=== PATIENT | female | born 1950 | race Caucasian/White ===

== ENCOUNTER → 2023-09-19 14:19 | Outpatient (REF) | payer BC, SELFPAY | LOC: HWWDC 14:19 | PROVIDERS: ATTENDING PHYSICIAN Family Medicine | DX: Z12.31 Encounter for screening mammogram for malignant neoplasm of breast (principal) | CPT/HCPCS: 77063; 77067 ==

== ENCOUNTER → 2023-09-27 06:38 | Day surgery (SDC) | payer BC, SELFPAY | LOC: GI 06:38 | PROVIDERS: ATTENDING PHYSICIAN Internal Medicine; FAMILY PHYSICIAN Family Medicine | DX: Z12.11 Encounter for screening for malignant neoplasm of colon (principal); Z86.010 Personal history of colon polyps; K57.30 Diverticulosis of large intestine without perforation or abscess without bleeding; K64.9 Unspecified hemorrhoids; D12.8 Benign neoplasm of rectum | CPT/HCPCS: 45385; 88305 ==

== ENCOUNTER 2024-12-10 06:24 | Day surgery (SDC) | payer BC, MEDICARE, SELFPAY ==
--- NOTE | 2024-11-20 11:05 | CM ---
Stephon was updated by PAT RN that patient appears to be ill prepared for surgery date. CM spoke with patient. Patient confirmed that she will be staying with her daughter post operatively for one day post op in [place];
[address] [facility]
[place] [id number]
Patient is going to make outpatient PT appointment at [facility].
Patient did not ready pre-operative education packet, but confirmed she will review packet and obtain appropriate DME equipment. C
STEPHON updated [facility] Admission RN and ortho PA.
CM provided patient with this CM's contact information and will remain available as needed.
--- NOTE | 2024-11-20 14:01 | VNURNOTE ---
Patient is scheduled for an elective L TKA on 12/10 - she is a same day patient with Dr Saez. Spoke with patient prior to surgery. Introduced role of [facility] Liaison. Patient reports that she lives with her spouse in [facility]. Post-op, she
will be staying at her daughter Justine in [place].
[facility] house has 4 steps to enter and a flight of steps to the second floor.
There is a powder room on the entry examiner. She has a cane and rolling walker.
Discussed [facility] joint protocol and post surgical plans.
Explained that Same Day [facility] joint protocol is at least 2 days at home w/VN and PT.
Reviewed that she will have VN services initially and will then start outpatient PT.
Patient selects [facility] for her home care needs and will go to [facility] in [facility] for outpatient PT.
She will call to schedule outpt PT for 12/12.
Patient is in agreement with plan and states that her daughter will be home with her. Advised to bring RW with her day of surgery. Referral placed in [facility]. [facility] supervisors Malcolm and Alex, Ortho PA Helene, and surg coordinator Edilia all updated
on plan.
Plan: [facility] per [facility] joint protocol 12/10 then outpt PT on 12/12.
Pt's daughter Jenn [phone] in [place]
[2024-11-21 11:19] LABS: Hematocrit 42.1 % (37.0-47.0); Mean Corp Hgb Conc. 33.3 g/dL (33.0-37.0); Mean Corpuscular Hgb 31.2 pg (27.0-31.0); Mean Corpuscular Volume 93.8 fL (81.0-99.0); Mean Platelet Volume 12.2 fL (7.4-10.4); Platelet Count 229 10^3/uL (130-400); Red Blood Cell Count 4.49 10^6/uL (4.20-5.40); Red Cell Dist. Width 13.1 % (11.5-14.5); White Blood Cell Count 5.3 10^3/uL (4.8-10.8)
[2024-11-21 11:46] LABS: Glycohemoglobin (HgbA1c) 5.5 % (4.0-5.6)
[2024-11-21 11:57] LABS: ALT (SGPT) 36 U/L (0-35); AST (SGOT) 35 U/L (14-36); Albumin 4.3 g/dl (3.5-5.0); Alkaline Phosphatase 50 U/L (38-126); Blood Urea Nitrogen 17 mg/dl (7-17); Calcium 9.6 mg/dl (8.4-10.2); Carbon Dioxide 29 mmol/L (22-30); Chloride 104 mmol/L (98-107); Glucose 90 mg/dl (70-99); Potassium 3.7 mmol/L (3.5-5.1); Sodium 140 mmol/L (135-145); Total Bilirubin 0.7 mg/dl (0.2-1.3); Total Protein 6.6 g/dl (6.3-8.2); eGFR > 60.00
[2024-11-21 13:35] VITALS: BMI 28.8
[2024-11-22 16:43] VITALS: BMI 28.8
[2024-12-10] VITALS (11 sets, daily range): BP systolic 136–168; BP diastolic 60–76; PULSE 53; O2SAT 100
[2024-12-10] MEDS: TYLENOL 650 MG PO (07:47)
[2024-12-10] MEDS: NORMOSOL-R/PLASMALYTE-A 1000 IV (07:53)
[2024-12-10] MEDS: ANCEF 5 IV (14:55)
== END 2024-12-10 15:43 | disposition home health service (06) ==
LOC: SDS 06:24
PROVIDERS: ATTENDING PHYSICIAN Specialist; FAMILY PHYSICIAN Family Medicine; OTHER PHYSICIAN Physician Assistant; REFERRING PHYSICIAN Internal Medicine Cardiovascular Disease
DX: M17.12 Unilateral primary osteoarthritis, left knee (principal)
CPT/HCPCS: 27447; 36415; 73560; 80053; 83036; 85027; 87070; 97162; 97530; C1713; C1776

== ENCOUNTER → 2025-01-28 10:06 | Outpatient (REF) | payer BC, SELFPAY | LOC: HWRAD 10:06 | PROVIDERS: ATTENDING PHYSICIAN Internal Medicine Rheumatology; FAMILY PHYSICIAN Family Medicine | DX: M81.0 Age-related osteoporosis without current pathological fracture (principal) | CPT/HCPCS: 77080 ==

== ENCOUNTER 2025-03-19 13:42 | Emergency (ER) | payer BC, SELFPAY ==
[2025-03-19 13:54] VITALS: BP 153/67
--- NOTE | 2025-03-19 15:43 | ED.GENMED ---
History of Present Illness
General
Chief Complaint: Anal/Rectal Problem
Source: patient
Exam Limitations: none
Time Seen by Provider: 03/19/25 15:29
History of Present Illness
History of Present Illness:
74yoF with a history of coronary artery disease s/p CABG, hypertension, hyperlipidemia, and lupus presenting for evaluation of hemorrhoids. Patient has been dealing with painful hemorrhoids for the past 3 weeks. She reports a burning, throbbing
pain in her rectum. She is also having bright red rectal bleeding with bowel movements. The hemorrhoids become more swollen after bowel movements. She was seen by her PCP 1 week ago for the symptoms and was advised to use Preparation H and stool
softeners. She has been using this without any relief. She could not take it anymore so decided to come to the ED for evaluation. She denies any fevers.
Past History
Past History
ED Past Medical History: CAD (2014), HTN, [place], Psychiatric (depression ) and Other (Lupus, kidney stones)
ED Past Surgical History: Other (breast)
Social History
Tobacco: Non-smoker
Alcohol: Occasional
Drug: None
Personal:
Living: with family
Employment: Employed
Family History
Family History: Hypertension
Phy Exam
General Physical Exam
General Presentation: well appearing and no apparent distress
General Skin: warm and dry
General Habitus: normal
General Mental: alert
ENT Exam
ENT Exam: normocephalic
Pulmonary Exam
Pulmonary Exam: no respiratory distress
Gastrointestinal Exam
Rectal Exam: other (Several external hemorrhoids noted that are tender to touch although do not appear thrombosed or engorged. No brenda rectal bleeding noted. No evidence of perirectal abscess.)
Neurological Exam
Neurological Exam: alert
Colby Coma Scale
Eye Opening: Spontaneous
Verbal Response: Oriented
Motor Response: Obeys Commands
GCS Total Score: 15
Skin Exam
Skin Exam: normal color and warm/dry
Psychiatric Exam
Psychiatric Exam: normal mood/affect
Course
Vital Signs
Initial and Last Documented VS:
Initial Vital Signs
Temp Pulse Resp BP Pulse Ox
98.0 F 68 18 153/67 99
03/19/25 13:54 03/19/25 13:54 03/19/25 13:54 03/19/25 13:54 03/19/25 13:54
Last Documented Vital Signs
Temp Pulse Resp BP Pulse Ox
98.0 F 71 20 133/64 99
03/19/25 13:54 03/19/25 16:17 03/19/25 16:17 03/19/25 16:17 03/19/25 16:17
MDM/Problems Addressed
Differential Diagnosis Includes:
74yoF here with painful hemorrhoids x 3 weeks. Has been using Preparation H and stool softeners without relief. VSS. Several external hemorrhoids noted on exam that do not appear thrombosed. No evidence of perirectal abscess noted. Patient did
have outpatient blood work today and hemoglobin was 10.1. Vital signs are stable and there is no brenda rectal bleeding noted on rectal exam.
Patient was given a prescription for hydrocortisone suppositories. Patient is very frustrated regarding her symptoms. I reached out to rail operations controller colorectal surgeon to help expedite outpatient f/u. Patient advised to continue stool softeners and use
sitz baths to help with discomfort. She given contact information for colorectal surgery and advised to make an appointment. Patient discharged in stable condition.
*Pulse Oximetry
SaO2: 99
Oxygen Mode of Delivery: Room air
Patient hypoxic: no
*Critical Care Note
Total Time (30-74mins, 75-104mins- exclusive of procedures): Not Applicable
ED Attending Note
-
Portions of this chart may have been created with voice recognition software.� Occasional wrong word or��sound alike� substitutions may have occurred due to the inherent limitations of voice recognition software.
Discharge Plan
Departure
Patient Disposition: Home (Routine Discharge)
Date of Disposition: 03/19/25
Time of Disposition: 15:51
Patient with high blood pressure during this ER visit?: Yes
Discharge Problem:
External hemorrhoids
Instructions: How to take a sitz bath, Hemorrhoids - ED (DC)
Prescriptions:
New
hydrocortisone acetate [Hemmorex-HC] 25 mg suppository
25 mg [place] DAILY Qty: 12 0RF
No Action
hydroxychloroquine 200 MG tablet
200 mg PO HS
multivitamin Tablet
1 tab PO DAILY
mycophenolate mofetil [CellCept] 500 mg Tablet
1,000 mg PO DAILY
mycophenolate mofetil [CellCept] 500 mg Tablet
500 mg PO HS
metoprolol succinate 25 mg Tablet Extended Release 24 Hr
25 mg PO DAILY
cholecalciferol (vitamin D3) [Vitamin D3] 25 mcg (1,000 unit) Capsule
25 mcg PO DAILY
calcium citrate-vitamin D3 [Calcium Citrate + D] 315 mg-5 mcg (200 unit) Tablet
1 tab PO DAILY
atorvastatin 80 MG tablet
80 mg PO HS
docusate sodium [Colace] 100 mg capsule
100 mg PO BID Qty: 30 0RF
valsartan 160 mg Tablet
160 mg PO BID Qty: 1 0RF
Rx Instructions:
HOLD IF systolic blood pressure <130 while on post-surgical narcotics.
aspirin 81 mg Tablet
81 mg PO DAILY
chlorthalidone 25 mg tablet
25 mg PO DAILY
Rx Instructions:
HOLD IF systolic blood pressure <130 while on post-surgical narcotics.
acetaminophen [Acetaminophen Extra Strength] 500 mg tablet
1,000 mg PO DAILY PRN (Reason: pain)
Rx Instructions:
DO NOT exceed >4000 mg daily.
spironolactone 25 mg tablet
12.5 mg PO DAILY
Rx Instructions:
HOLD IF systolic blood pressure <130 while on post-surgical narcotics.
cefadroxil 500 mg capsule
500 mg PO BID Qty: 14 0RF
Rx Instructions:
Start night of discharge and continue twice a day until finished.
Take with probiotic.
gabapentin 300 mg capsule
300 mg PO HS Qty: 10 0RF
mupirocin 2 % ointment
1 applic intranasal BID Qty: 1 0RF
Rx Instructions:
Has from prior total joint.
prochlorperazine maleate [Compazine] 5 mg tablet
5 mg PO Q8H PRN (Reason: nausea and vomiting) Qty: 30 0RF
Rx Instructions:
Has from prior total joint.
oxycodone 5 mg tablet
5 - 10 mg PO Q6H PRN (Reason: moderate-severe pain) Qty: 30 0RF
Rx Instructions:
1 tab for moderate pain, 2 if severe.
Dx total joint.
Referrals:
Royer Almendarez MD [Active, ColoRectal]
Dagmar Vegas MD [Family Provider, Family Practice]
Activity Restrictions/Additional Instructions:
Use hydrocortisone suppositories as prescribed. Use sitz baths 2-3x daily. Continue taking stool softeners.
Please call today to schedule a follow-up appointment with colorectal surgery. Return to the ER with any worsening symptoms including fevers.
Interventions
Interventions:
*Risk Screen - Suicide Last Done: 03/19/25 13:54
*General Assessment Last Done: 03/19/25 15:30
*Neglect/Abuse Screening Last Done: 03/19/25 15:30
*ED COVID-19 Vaccine History Last Done: 03/19/25 15:30
*ED Influenza Vaccine History Last Done: 03/19/25 15:30
*Nursing Disposition Last Done: 03/19/25 16:17
ED-Skin Assessment Last Done: 03/19/25 15:30
Discharge Date and Time
Discharge Date/Time: 03/19/25 16:18
Print Language: HUNGARIAN
[2025-03-19 16:17] VITALS: BP 133/64
== END 2025-03-19 16:18 | disposition home or self-care (01) ==
LOC: EMR 13:42
PROVIDERS: EMERGENCY PHYSICIAN Emergency Medicine; FAMILY PHYSICIAN Family Medicine
DX: K64.4 Residual hemorrhoidal skin tags (principal); I25.810 Atherosclerosis of coronary artery bypass graft(s) without angina pectoris; I10 Essential (primary) hypertension; E78.5 Hyperlipidemia, unspecified; I25.2 Old myocardial infarction; M32.9 Systemic lupus erythematosus, unspecified; F32.A Depression, unspecified; Z79.82 Long term (current) use of aspirin; Z95.1 Presence of aortocoronary bypass graft; Z95.5 Presence of coronary angioplasty implant and graft; Z82.49 Family history of ischemic heart disease and other diseases of the circulatory system
CPT/HCPCS: 99282

== ENCOUNTER 2025-03-22 13:46 | Day surgery (SDC) | payer BC, SELFPAY ==
[2025-03-22] VITALS (17 sets, daily range): BP systolic 114–166; BP diastolic 46–63; BMI 26.7
[2025-03-22 12:24] LABS: Hematocrit 29.6 % (37.0-47.0); Hemoglobin 9.9 g/dL (12.0-16.0); Mean Corp Hgb Conc. 33.4 g/dL (33.0-37.0); Mean Corpuscular Volume 92.2 fL (81.0-99.0); Nucleated Red Blood Cells % 0 %; Platelet Count 286 10^3/uL (130-400); Red Cell Dist. Width 12.9 % (11.5-14.5)
[2025-03-22 12:38] LABS: ALT (SGPT) 24 U/L (0-35); AST (SGOT) 28 U/L (14-36); Albumin 4.2 g/dl (3.5-5.0); Alkaline Phosphatase 71 U/L (38-126); Blood Urea Nitrogen 24 mg/dl (7-17); Calcium 9.7 mg/dl (8.4-10.2); Carbon Dioxide 25 mmol/L (22-30); Chloride 104 mmol/L (98-107); Estimated Creatinine Clearance 56 ml/min; Glucose 90 mg/dl (70-99); Magnesium 1.4 mg/dl (1.6-2.3); Potassium 3.2 mmol/L (3.5-5.1); Sodium 139 mmol/L (135-145); Total Protein 6.6 g/dl (6.3-8.2); eGFR > 60.00
--- NOTE | 2025-03-22 12:55 | CON.CRS ---
Consultation
-
Date/Time Consultation Requested: 03/22/2025, 12:10
Date/Time Consultation Performed: 03/22/2025, 12:45
Requesting Provider: Teddy Salas DO
Performing Provider: Eleuterio Haley MD
Reason for Consultation: rectal pain
Medical History
-
Chief Complaint: rectal pain
History of Present Illness:
74-year-old female, on CellCept for lupus, presents to Dr. Akins's clinic earlier today complaining of anal pain. She was seen on 03/19/2025 with a 3-week history of perianal burning and throbbing by the PA at [facility] primary medicine.
She describes some bright red blood with bowel movements and swollen hemorrhoids. She was started on Preparation H and stool softeners without these. She did develop constipation after taking narcotics following a total left knee arthroplasty on
12/10/2024. She states that she strained which exacerbated her hemorrhoids. Now she has constant pain with associated swelling. She also has some bright red blood per rectum when wiping in the toilet. She is currently taking Colace and senna.
She is not able to insert suppositories. She is currently off her CellCept due to holding it for 2 weeks prior to a scheduled right knee surgery on April 01, 2025. Her last colonoscopy was in July 2023 and hemorrhoids were seen. There is
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 oGnsalez. On examination in the office by Dr. Akins earlier today, there was increased anal tone and significant pain on exam. He was not able to perform a complete anoscopy due to pain.
There may have been a fissure posteriorly and there were enlarged internal hemorrhoids. Given the unclear etiology of her anorectal pain. She was sent to the emergency room for an exam under sedation later today.
Past Medical History
Past Medical History: Other (myocardial infarction, Lupus, HTN, CAD)
Past Surgical History: Other (Lithotripsy, bilateral breast reduction, cardiac stents x 4, off-pump cardiac artery bypass grafting x 3, total left knee replacement)
Social History
Tobacco: Non-Smoker
Alcohol: None
Family History
Family History: Reviewed & Not Pertinent
Allergies / Home Medications
Allergy/AdvReac Type Severity Reaction Status Date / Time
No Known Allergies Allergy Verified 03/22/25 11:50
�Medication �Instructions �Recorded �Confirmed �Type
hydroxychloroquine 200 mg tablet 200 mg PO HS Autoimmune disorder 07/07/14 03/22/25 History
atorvastatin 80 mg tablet 80 mg PO HS 11/20/24 03/22/25 History
calcium 315 mg (as 1 tab PO DAILY 11/20/24 03/22/25 History
citrate)-vitamin D3 5 mcg (200
unit) tablet (Calcium Citrate + D)
cholecalciferol (vitamin D3) 25 25 mcg PO DAILY 11/20/24 03/22/25 History
mcg (1,000 unit) capsule (Vitamin
D3)
metoprolol succinate 25 mg 25 mg PO DAILY 11/20/24 03/22/25 History
tablet,extended release 24 hr
multivitamin 1 tab PO DAILY 11/20/24 03/22/25 History
mycophenolate mofetil 500 mg 1,000 mg PO DAILY 11/20/24 03/22/25 History
tablet (CellCept)
Held on 12/10/24.
Instructions: Resume on
12/17/24.
valsartan 160 mg tablet 160 mg PO BID #1 tab 12/10/24 03/22/25 Rx
acetaminophen 500 mg tablet 1,000 mg PO DAILY PRN pain 03/18/25 03/22/25 History
(Acetaminophen Extra Strength)
aspirin 81 mg tablet 81 mg PO DAILY 03/18/25 03/22/25 History
chlorthalidone 25 mg tablet 25 mg PO DAILY 03/18/25 03/22/25 History
spironolactone 25 mg tablet 12.5 mg PO DAILY 03/18/25 03/22/25 History
oxycodone 5 mg tablet 5 - 10 mg (1 - 2 x 5 mg) PO Q6H 03/19/25 03/22/25 Rx
PRN moderate-severe pain #30 tabs
Review of Systems
-
History Source: Patient
: Other (Anal pain)
A 10 point review of systems was completed, and was negative except as per HPI.
Physical Exam
Vital Signs
Temp 97.6 F 03/22/25 12:12
Pulse 57 03/22/25 12:12
Resp Rate 15 03/22/25 12:12
Blood pressure 123/54 03/22/25 12:12
SaO2 100 03/22/25 12:12
03/21/25 03/22/25 03/23/25
06:59 06:59 06:59
Actual Weight 66.224 kg
Body Mass Index (BMI) 26.7
Lab Results / Allergies
03/22/25 12:09
03/22/25 12:09
WBC 6.7 10^3/uL (4.8-10.8) 03/22/25 12:09
Hgb 9.9 g/dL (12.0-16.0) L 03/22/25 12:09
Hct 29.6 % (37.0-47.0) L 03/22/25 12:09
Plt Count 286 10^3/uL (130-400) 03/22/25 12:09
Abs Immat Gran (auto) 0.0 10^3/uL (0-0.05) 03/22/25 12:09
Neutrophils % 62.2 % (42.2-75.2) 03/22/25 12:09
Allergy/AdvReac Type Severity Reaction Status Date / Time
No Known Allergies Allergy Verified 03/22/25 11:50
Data Reviewed
-
Labs: Labs Reviewed by me, Discussed with Physician and Discussed with Patient
Old Records: Reviewed
Assessment / Plan
-
Assessment:74-year-old female with a history of CellCept for lupus, currently being held for upcoming right knee surgery, presents to the ER from Dr. Akins's clinic due to severe anal rectal pain
Plan:
-Admit to medicine service
- Continue to hold CellCept
- Remain n.p.o.-last oral intake was 7 AM today and
-Will schedule for an exam under anesthesia with Dr. Haley later today to further evaluate the cause of her severe anal rectal pain
- Up-to-date on colonoscopy
--- NOTE | 2025-03-22 13:01 | EDRN ---
the OR called this RN and verbal report was given
--- NOTE | 2025-03-22 13:10 | HPS.HSE ---
Addendum entered and electronically signed by Kumar Greene MD 03/22/25 14:36:
Seen and examined the patient with the resident. Plan formulated together
See separate note for addendum
Original Note:
Family Physician
-
Family Physician: Dagmar Vegas
Chief Complaint
-
Anal Pain
History of Present Illness
This is a 74 y/o female with pmhx of Lupus, Essential Hypertension, Coronary Artery Disease s/p stent placement in 2014 and history of [place] who reports she has had severe burning pain and throbbing in her rectum for 3 weeks and bleeding. In November 2024,
she had a left knee replacement and was started on medications for pain control. She was also given a stool softener, which she did not take. At that point she had begun to experience some straining/constipation, so when she began to experience
rectal pain it was assumed to be due to hemorrhoids. She tried using over the counter hemorrhoid cream, but her pain persisted as did the bleeding. She was unable to tolerate suppositories recommended by her PCP.
Currently she reports pain 24 hours a day with increased pain during bowel movements. She also reports around 1/2 cup of bright red blood in the toilet after bowel movements with no clots. Her most recent colonoscopy from 2023 did show hemorrhoids.
She had an appointment with [facility] Dr. Akins today to follow up on this pain, during which time an anoscopy was performed. Dr. Akins was concerned her unbearable pain was the result of an anal fissure, and instructed her to
report to the hospital for exam under sedation.
She has been holding CellCept today (Last dose on 03/21/2025) in anticipation of right knee surgery on 04/01/2025.
Medical History
Past Medical History
Past Medical History: Reports CAD (S/p stents x4 in 2014), HTN, [place] and Other (Lupus)
Past Surgical History: Reports Other
Additional Past Surgical History:
Knee replacement in 11/2024
Coronary Artery Bypass grafting x3 in 2021
Coronary artery Stents x4 2014
Social History
Tobacco: Non-smoker
Alcohol: None
Drug: None
Personal:
Living: With Family
Employment: Retired
Family History
Family History: Not pertinent
Allergies / Home Medications
Allergies reflects when Allergies were last updated in [facility].
Home Medications with original date entered in [facility]
Allergy/Medication List:
Allergies
Allergy/AdvReac Type Severity Reaction Status Date / Time
No Known Allergies Allergy Verified 03/22/25 11:50
Home Medications
hydroxychloroquine 200 mg tablet 200 mg PO HS Autoimmune disorder 07/07/14
atorvastatin 80 mg tablet 80 mg PO HS 11/20/24
calcium 315 mg (as citrate)-vitamin D3 5 mcg (200 unit) tablet (Calcium Citrate + D) 1 tab PO HS 11/20/24
cholecalciferol (vitamin D3) 25 mcg (1,000 unit) capsule (Vitamin D3) 25 mcg PO HS 11/20/24
metoprolol succinate 25 mg tablet,extended release 24 hr 25 mg PO DAILY 11/20/24
multivitamin 1 tab PO HS 11/20/24
valsartan 160 mg tablet 160 mg PO BID #1 tab 12/10/24
acetaminophen 500 mg tablet (Acetaminophen Extra Strength) 1,000 mg PO DAILY PRN pain 03/18/25
aspirin 81 mg tablet 81 mg PO HS 03/18/25
chlorthalidone 25 mg tablet 25 mg PO DAILY 03/18/25
spironolactone 25 mg tablet 12.5 mg PO DAILY 03/18/25
oxycodone 5 mg tablet 5 - 10 mg (1 - 2 x 5 mg) PO Q6H PRN moderate-severe pain #30 tabs 03/19/25 [NOT TAKING]
mycophenolate mofetil 500 mg tablet 1,000 mg PO DAILY 03/22/25
mycophenolate mofetil 500 mg tablet 500 mg PO HS 03/22/25
Review of Systems
-
A 12 point ROS was completed and negative except as noted: Yes
Constitutional: Reports Weight Loss (5 lb reported); Denies Fever or Chills
Respiratory: Denies Trouble Breathing
Cardiac: Denies Chest Pain
Abdomen/GI: Reports Bloody Stools and Other (Rectal Pain); Denies Abdominal Pain, Nausea or Vomiting
Musculoskeletal: Reports Joint Pain (Right knee, chronic)
Hematologic/Lymphatic: Reports Bleeding (See HPI)
Psych: Reports Calm
Physical Exam
Vital Signs
Vital Signs
Temp Pulse Resp BP Pulse Ox
97.6 F 57 15 123/54 100
03/22/25 12:12 03/22/25 12:12 03/22/25 12:12 03/22/25 12:12 03/22/25 12:12
Physical Exam
General: Well Developed, Well Nourished and Pain
HEENT: NormoCephalic, Anicteric, Nose Appears Normal and Ears Appear Normal
Respiratory: Clear
Cardiac: S1/S2 and Regular Rhythm
Rectal: Hemorrhoids (External hemorrhoids visible around the anal sphincter without any visible erythema or blood. Further rectal exam deferred due to extreme discomfort)
Genito-urinary: Deferred by me
Skin: Warm and Dry
Neuro: Awake, Alert and Oriented
Psych: Calm
Laboratory Results
-
03/22/25 12:09
03/22/25 12:09
Laboratory Results
Total Bilirubin 0.4 mg/dl (0.2-1.3) 03/22/25 12:09
AST 28 U/L (14-36) 03/22/25 12:09
ALT 24 U/L (0-35) 03/22/25 12:09
Alkaline Phosphatase 71 U/L (38-126) 03/22/25 12:09
Impression/Plan
-
IMPRESSION:
This is a 74 y/o female with pmhx of Lupus, Essential Hypertension, Coronary Artery Disease s/p stent placement in 2014 and history of [place] who reports she has had severe burning pain and throbbing in her rectum for 3 weeks and bleeding possibly
secondary to anal fissure.
PLAN:
Anorectal Spasm/Pain with concern for Anal Fissure
External Hemorrhoids
Anemia, likely Blood Loss
-Patient with 3 weeks of burning/throbbing anorectal pain with bright red blood per rectum.
-Hemoglobin in the ED 9.9
-Pain is out of proportion to visual rectal exam. Digital rectal exam deferred due to pain. Suspicion for Anal Fissure
-Patient will be taken to the OR today for exam under sedation. Further management pending results of exam with plans for possible sphincterectomy
-Patient NPO, last meal today breakfast this morning
-Pre-operative EKG ordered
-No indication for antibiotics at this time
-Plan to hold blood pressure medications until tomorrow AM in light of sedation
-Post-operatively, will continue to reevaluate patient's pain needs to ensure adequate pain control
-Continue to monitor CBC
-Will monitor
Systemic Lupus Erythematosus
-HOLD Mycophenolate mofetil. Last dose 03/21/2025
-Continue Hydroxychloroquine 200mg PO HS
-Will monitor
Essential Hypertension
-HOLD BP medications until tomorrow AM to account for sedation
-Will monitor
Hypokalemia
Hypomagnesemia
-Magnesium (1.4) and Potassium (3.2) low on admission
-Ordered one time repletion
-Will recheck in AM
Coronary Artery Disease S/p Stent x4
History of CABG
History of [place]
-Ordered presurgical EKG today
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
-Will monitor
S/p Left Knee Replacement
Right Knee Osteoarthritis
-Patient with left knee replacement in 11/2024, plan for right knee replacement on 04/01/2025.
-Right knee replacement may need to be postponed pending this admission
--- NOTE | 2025-03-22 13:19 | ED.GENMED ---
History of Present Illness
General
Chief Complaint: Anal/Rectal Problem
Source: patient
Exam Limitations: none
Time Seen by Provider: 03/22/25 12:45
Nursing documentation reviewed up to this point in time: agreed with
History of Present Illness
History of Present Illness:
Patient is a 74-year-old female with history of CAD, hypertension, hyperlipidemia who presents to the emergency department with intractable rectal pain. Patient seen in ED a few days ago and found to have external hemorrhoids and discharged with
suppositories and colorectal f/u outpatient. She has been suffering with constant rectal discomfort and passing bright red blood in her stools. Pain is worse with bowel movements. No improvement in symptoms wtih cream or suppositories.
She denies any fever, chills, abdominal pain, or vomiting. No diarrhea.
She was seen by colorectal surgeon this morning and sent to ED for admission and likely operative management this afternoon.
Past History
Past History
ED Past Medical History: CAD (2014), HTN, DC, Psychiatric (depression ) and Other (Lupus, kidney stones)
ED Past Surgical History: Other (breast)
Social History
Tobacco: Non-smoker
Alcohol: Occasional
Drug: None
Personal:
Living: with family
Employment: Employed
Family History
Family History: Hypertension
Review of Systems
Review of Systems
Allergies reviewed?: Yes
All Other Systems: ROS reviewed and negative except as documented in HPI and ROS
Phy Exam
Physical Exam
Physical Exam:
Vitals: Patient's vital signs are stable. Afebrile
General: Patient is moderately uncomfortable. Nontoxic appearing.
Skin: Warm and dry, no rashes or lesions
Head: Normocephalic, atraumatic
Eyes: Sclera nonicteric. EOMs intact. No nystagmus.
Throat: Protecting airway
Neck: Normal ROM, no cervical spine tenderness, no meningismus
Cardiac: Regular rate and rhythm, no murmurs.
Pulm: Normal respiratory effort, no wheezes, rales, rhonchi heard on exam
Abdomen: Abdomen soft and nontender.
Rectal: Multiple external hemorrhoids no evidence of thrombosis or engorgement
Extremities: No evidence of cyanosis or edema
Neuro: AAOx3. Grossly intact.
Psychiatric: Normal affect.
Course
Orders/Labs/Results
Orders:
Orders
03/22/25 Breakfast
NPO
Allow oral meds: No
Allow clear liquids: No
03/22/25 Lunch
NPO
Allow oral meds: Yes
Allow clear liquids: No
03/22/25 12:09
Complete Blood Count/With Diff Urgent
Comprehensive Metabolic Panel Urgent
Ferritin Routine
Comment: ADD ON
Iron Urgent
Comment: ADD ON
Magnesium Urgent
Total Iron Binding Urgent
Comment: ADD ON
Vitamin B12 Routine
Comment: ADD ON
03/22/25 13:03
Bupivacaine Mpf 0.25% [Sensorcaine-Mpf 0.25% Vial] 30 ml .ROUTE .STK-MED ONE
Dexamethasone Pf [Decadron] 10 mg .ROUTE .STK-MED ONE
Lidocaine Mpf 1% [Xylocaine-Mpf 1% Vial] 30 ml .ROUTE .STK-MED ONE
03/22/25 13:08
Dexamethasone Sod Phosphate [Decadron] 20 mg .ROUTE .STK-MED ONE
Lidocaine 2% Mpf [Xylocaine Mpf 2%] 100 mg .ROUTE .STK-MED ONE
Ondansetron Injectable [Zofran] 4 mg .ROUTE .STK-MED ONE
Propofol [Diprivan] 40 ml .ROUTE .STK-MED
Rocuronium [place] [Rocuronium] 50 mg .ROUTE .STK-MED ONE
Succinylcholine Chloride [Succinylcholine] 200 mg .ROUTE .STK-MED ONE
03/22/25 13:16
Fentanyl Citrate/Pf [Sublimaze] 100 mcg .ROUTE .STK-MED ONE
Midazolam HCl [Versed] 2 mg .ROUTE .STK-MED ONE
03/22/25 13:20
Admit/Transfer Patient As Directed
Co-Sign Provider:
Level of Care: Post Proc/Surg Recovery
Assign to:: Medical/Surgical
Physician / Group: Hospitalists
Diagnosis: Anorectal spasm with possible Fissure
Patient Condition: Good
Reason for Hospitalization: Anorectal spasm with possible fissure
Expected length of stay greater than two midnights?: Yes
ELOS- Estimated Length of Stay in days: 2
I certify the patient meets the requirements for IP care: Yes
Reason for Overnight Stay: Bleeding/Bleeding Risk
PRN Pain Medication Management As Directed
May give lesser potent ordered pain med per pt: Yes
preference::
Protocol:: Medication orders for pain may be administered in a
manner that supports deferring to patient preference
when the pt is:
- Requesting an ordered lesser potent pain medication.
Least to most potent pain medications are defined
as: acetaminophen < NSAID < tramadol < opioids
(morphine, oxycodone, hydromorphone).
- Requesting a lesser dose of the same medication IF
ORDERED.
- Requesting a less intrusive route of administration
if both routes are prescribed by the provider (PO <
IV).
03/22/25 13:24
Bupivacaine 0.25%Pf/Epinephrin [Sensorcaine-Epi 0.25%-0.0005] 30 ml .ROUTE .STK-MED ONE
03/22/25 13:28
Code Status As Directed
Resuscitation Status: Full Code
03/22/25 13:34
Magnesium Sulfate 2 Gram/50 ml [Magnesium Sulfate] 2 gram in 50 ml IV NOW
Potassium Chloride [KCl] 40 meq 0.9% Sodium Chloride 250 ml [Nss] 250 ml IV NOW
03/22/25 13:35
Add On- LAB Routine
Tests Added?: iron,tibc,ferritin,b12
EKG [Electrocardiogram (*1)] Urgent
Reason for Study: PreOp
03/22/25 14:15
Botulinum Toxin Type A [Botox] 100 units INJ OR ONE
03/22/25 14:31
Acetaminophen [Tylenol] 1,000 mg PO DAILYPRN PRN mild pain mild pain
Bisacodyl [Dulcolax] 10 mg RECTAL [id number] PRN
Docusate W/Senna [Senokot-S] 1 tablet PO BIDPRN PRN
Polyethylene Glycol Powder [Miralax] 17 grams PO DAILYPRN PRN
03/22/25 14:31
Activity As Directed
Activity Level: As Tolerated
Pneumatic Compression Sleeves As Directed
Type: Knee high
Vital Signs As Directed
Frequency: Per unit guidelines
DX Deep Vein Thrombosis Video Routine
03/22/25 14:34
CARDIOLOGY CONSULT Routine
Consulting Provider: Kevin Camargo
Was physician already notified: Yes
Reason for consult: Bradycaria and Possible Complete Heart Block under Anesthesia
03/22/25 14:40
Transfer Patient As Directed
Transfer to: Telemetry
Reason for Telemetry: Other
Other Reason for Telemetry: Bradycardia/possible complete heart block with anesthesia
Date to Stop Telemetry: 03/24/25
Time to Stop Telemetry: 11:00
03/22/25 14:50
CR Chest Portable - 1 View Urgent
Comment: UPRIGHT
Reason For Exam: hypoxia
Reason Study Needs to be Portable: Unable to Transport
03/22/25 14:51
Atropine Sulfate 0.4 mg .ROUTE .STK-MED ONE
03/22/25 14:58
Ondansetron Injectable [Zofran] 4 mg .ROUTE .STK-MED ONE
03/22/25 Dinner
Regular
At Your Request: Full Participation
Does patient need a safe tray?: No
03/22/25 15:01
Fentanyl Citrate/Pf [Sublimaze] 25 mcg IV [id number] PRN
Fentanyl Citrate/Pf [Sublimaze] 25 mcg IV PACU-Q5MPRN PRN
Fentanyl Citrate/Pf [Sublimaze] 50 mcg IV PACU-Q5MPRN PRN
Ondansetron Injectable [Zofran] 4 mg IV PACU-ONCEPRN PRN
Prochlorperazine [Compazine] 5 mg IV PACU-ONCEPRN PRN
Notify MD As Directed
Notify physician if: for SDS patients with known or suspected sleep obstructive sleep apnea, monitor in the
PACU.
Notify MD for any apneic/desaturation episodes
O2 Therapy [RESP] Urgent
Titrate/Wean O2 to maintain O2 sat greater than (%): 92
Special Instructions: -Provide supplemental oxygen to achieve O2 sat of 92% or greater.
-After 15 min, may wean O2 and discontinue if patient is able to maintain O2 sat of 92%
or greater during recovery period.
If patient is a discharge home, without oxygen therapy, notify anestheiologist if
unable to maintain O2 SAT of 92% or greater on room air for MD clearance.
03/22/25 15:15
Normosol (Mult Electrolytes) [Normosol-R/Plasmalyte-A] 1,000 ml IV PER PROTOCOL
03/22/25 15:24
Troponin I Q6H
03/22/25 16:00
Flush (0.9% Sodium Chloride) [Flush (Nss)] See Dose Instructions IV PER PROTOCOL
03/22/25 17:14
Fentanyl Citrate/Pf [Sublimaze] 100 mcg .ROUTE .STK-MED ONE
03/22/25 19:42
HYDROmorphone [Dilaudid] 0.5 mg IV Q4HPRN PRN
Ketorolac [Toradol] 15 mg IV Q6HPRN PRN
Oxycodone [Roxicodone] 5 mg PO Q4HPRN PRN
03/22/25 20:00
Acetaminophen [Tylenol] 1,000 mg PO Q6
03/22/25 22:00
Aspirin Low Dose EC [Aspir Low (Enteric Coated)] 81 mg PO HS
Atorvastatin [Lipitor] 80 mg PO HS
Calcium Carbonate/Vitamin D3 [Oscal 500 + D] 500 mg PO HS
Cholecalciferol (Vitamin D3) [VITAMIN D3 (cholecalciferol)] 25 mcg PO HS
Hydroxychloroquine [Plaquenil] 200 mg PO HS
Multivitamin [Theragran] 1 tablet PO HS
03/22/25 22:22
Troponin I Q6H
03/23/25 04:24
Basic Metabolic Panel IN AM
Free T4 Routine
HSV 1/2 Ab, IgG with Reflex [S] Routine
Magnesium IN AM
TSH Reflex To Free T4 IN AM
Troponin I Q6H
03/23/25 05:43
Benzocaine/Menthol [Anesthetic Lozenge] 1 lozenge PO Q4HPRN PRN
03/23/25 06:42
Complete Blood Count/No Diff Routine
Comment: REDRAW
03/23/25 08:00
Chlorthalidone [Hygroton] 25 mg PO DAILY
Metoprolol Xl [Toprol Xl] 25 mg PO DAILY
Spironolactone [Aldactone] 12.5 mg PO DAILY
Valsartan [Diovan] 160 mg PO BID
03/24/25 06:00
Basic Metabolic Panel IN AM
Complete Blood Count/No Diff IN AM
03/24/25 11:00
DC Protocol for Telemetry ONCE
03/25/25 06:00
Basic Metabolic Panel IN AM
Complete Blood Count/No Diff IN AM
03/26/25 06:00
Basic Metabolic Panel IN AM
Complete Blood Count/No Diff IN AM
Abnormal Lab Results
03/22/25 03/22/25 03/22/25
12:09 15:24 22:22
RBC 3.21 L 10^6/uL
(4.20-5.40)
Hgb 9.9 L g/dL
(12.0-16.0)
Hct 29.6 L %
(37.0-47.0)
MPV 11.1 H fL
(7.4-10.4)
Absolute Monos (auto) 0.9 H 10^3/uL
(0.1-0.6)
Monocytes % 13.0 H %
(1.7-9.3)
Potassium 3.2 L mmol/L
(3.5-5.1)
BUN 24 H mg/dl
(7-17)
Glucose
Magnesium 1.4 L mg/dl
(1.6-2.3)
% Saturation 13 L %
(20-50)
Troponin I 0.040 H* ng/ml 0.056 H* D ng/ml
TSH (Reflex)
03/23/25
04:24
RBC
Hgb
Hct
MPV
Absolute Monos (auto)
Monocytes %
Potassium
BUN 21 H mg/dl
(7-17)
Glucose 119 H mg/dl
(70-99)
Magnesium
% Saturation
Troponin I 0.041 H* D ng/ml
TSH (Reflex) 0.28 L uIU/ml
(0.47-4.68)
10/11/25 04:24
Vital Signs
Initial and Last Documented VS:
Initial Vital Signs
Temp Pulse Resp BP Pulse Ox
98.2 F 63 18 135/58 100
03/22/25 11:48 03/22/25 11:48 03/22/25 11:48 03/22/25 11:48 03/22/25 11:48
Last Documented Vital Signs
Temp Pulse Resp BP Pulse Ox
98.3 F 51 16 122/49 97
03/23/25 03:04 03/23/25 03:04 03/23/25 03:04 03/23/25 03:04 03/23/25 03:04
MDM/Problems Addressed
Differential Diagnosis Includes:
Not limited to: external hemorrhoids, anal fissue, internal hemorrhoid, rectal abscess, thrombosed hemorrhoids
MDM/Problems Addressed:
74-year-old female presents with intractable rectal pain and bleeding. She has a known diagnosis of external hemorrhoids and was evaluated earlier today by her colorectal surgeon, who referred her to the ED for admission and further management due
to persistent symptoms.
Patient denies fever or other signs of systemic infection. She is hemodynamically stable. On physical exam, her abdomen is soft and non-tender. Rectal exam reveals multiple external hemorrhoids that are tender to palpation, without evidence of
thrombosis, significant engorgement, or signs of abscess.
Laboratory evaluation reveals stable anemia with hemoglobin of 9.9. Chemistry panel is unremarkable. No signs of hemodynamic compromise.
The colorectal surgeon evaluated the patient in the ED and recommended operative intervention. The patient was accepted to the inpatient hospitalist team and transported directly to the operating room from the ED in stable condition.
Chronic conditions affecting care:
N/A
Acute Exacerbation and/or Progression of Chronic Illness:
N/A
*Pulse Oximetry
SaO2: 99
Oxygen Mode of Delivery: Room air
Patient hypoxic: no
*EKG
Interpreted by ED Provider?: NA
*Waiter/Waitress Head Interpretation
Rate: Waiter/Waitress Head- N/A
*Critical Care Note
Total Time (30-74mins, 75-104mins- exclusive of procedures): Not Applicable
Patient Management
Discussion with other providers: Hospitalist and Electric Motor Tester Assembler (Case discussed with colorectal surgery)
ED Attending Note
-
Portions of this chart may have been created with voice recognition software.� Occasional wrong word or��sound alike� substitutions may have occurred due to the inherent limitations of voice recognition software.
Discharge Plan
Departure
Patient Disposition: Admit
Date of Disposition: 03/22/25
Time of Disposition: 13:00
Admit to: OR
Presentation/result/management discussed w/ accepting MD/DO: Hospitalist
Discharge Problem:
External hemorrhoids
Interventions
Interventions:
*Risk Screen - Suicide Last Done: 03/22/25 11:48
*General Assessment Last Done: 03/22/25 11:48
*Neglect/Abuse Screening Last Done: 03/22/25 12:12
*ED- Fall Risk Assessment Last Done: 03/22/25 12:12
*ED COVID-19 Vaccine History Last Done: 03/22/25 18:00
*ED Influenza Vaccine History Last Done: 03/22/25 11:48
*Nursing Disposition Last Done: 03/22/25 13:14
XE-Pllzzt-Uaeexadotl Assessment Last Done: 03/22/25 12:12
ED-Skin Assessment Last Done: 03/22/25 12:12
Discharge Date and Time
Discharge Date/Time: 03/22/25 13:27
--- NOTE | 2025-03-22 13:30 | W.PN.UPDATE ---
Update Note
Progress Note Update
Seen and examined the patient with resident. Agree with plan formulated together. Please see changes in my documentation
74-year-old female was seen in colorectal surgery's office and was sent to ER. Patient had knee surgery in November and has been some constipation issues since then. She has had some rectal pain in the past 3 weeks which was getting worse and also had
some blood in the stools. No fever no abdominal pain no constipation or diarrhea now. She has pain when having bowel movements
On examination patient awake alert oriented
Not in any acute distress
Chest clear to auscultation
Abdomen soft and nontender
Cardiovascular system S1-S2 appreciated
Anal exam-no digital exam performed from outside she has some skin tags/hemorrhoids
No pedal edema
Echo 06/03/2023-normal LV size and systolic function. Mild concentric LVH. EF 55 to 60%. Mild MR, mild TR
EKG ordered- By our team
# Anal pain
History of constipation and hemorrhoids in the past
Possible anal fissure given constipation
For anoscopy under anesthesia today patient is being taken to the OR soon
Hold off on antibiotics at present and will defer it to colorectal surgery
# Anemia-likely secondary to subacute blood loss from rectal bleeding. Check iron studies
# Hypokalemia-replace IV
# Hypomagnesemia will replace IV
# Coronary disease with history of multiple stents left circumflex and RCA and CABG-continue aspirin, statin, metoprolol, valsartan, Aldactone. Check EKG.
# Lupus. Patient was advised to stop CellCept as of today. She is not taking it as of today in anticipation of surgery. Continue Plaquenil
# Hyperlipidemia/atherosclerosis-continue statin
# Left total knee arthroplasty in November 2024
# Nephrolithiasis by history
# Diverticulosis
# History of vertigo
# Multilevel DDD
# Bilateral occipital neuralgia
# DVT prophylaxis-SCDs. Lovenox if okay with colorectal
# Full code
Discussed with pharmacy
Discussed with nursing
Discussed with at bedside
Part of this note was created using voice recognition system. Occasional wrong word or��sound alike� substitutions may have inadvertently occurred due to the inherent limitations of voice recognition software. If noted kindly bring it to my
attention for correction.
[2025-03-22 14:24] LABS: Iron 45 ug/dl (37-170)
[2025-03-22 14:34] LABS: Total Iron Binding Capacity 323 ug/dl (265-497)
--- NOTE | 2025-03-22 14:38 | W.IMMPOSTOP ---
Surgical Immed Post Op Note
-
Primary Surgeon: Eleuterio Haley MD
Assisting Surgeon: None
Pre-op Diagnosis: Anal pain
Post-op Diagnosis: Anal ulcers
Procedure Performed: Exam under anesthesia, perianal block
Anesthesia Type: Sedation with local
Specimen / Cultures: none
Estimated Blood Loss: Minimal
Complications: Episode of hypoxia and bradycardia, case aborted
Operative Findings: I performed a perianal block with 40 cc of local; her tone was elevated, but there were no fissures seen; there were 3 superficial ulcers; 1 ulcer was in the AML, and the lower anal canal extending to the upper anal canal about 5
mm wide and 1.5 cm long; another ulcer was in the left lateral position at the base of a partially prolapsing internal hemorrhoid, about 1 cm in size; the third ulcer was small, 3 x 3 mm in the right lateral position; the anal canal was irritated
with erythema; there was no proctitis or masses; the patient was noted to gag a few times without any significant vomit; she became hypoxic to the 70s to 80s; she was hypoxic for less than 1 minute and was flipped back onto the bed; her O2
saturation returned to 100%, but was noted to be bradycardic to 30s with what appeared to be complete heart block on the monitor; she was given atropine and her heart rate returned to normal; she had a pulse the entire time without any recorded
hypotension; after discussion with anesthesia, we decided to cancel the case for cardiology evaluation
--- NOTE | 2025-03-22 14:59 | OR.RPT ---
Operative Report
Operative Report
DATE OF OPERATION: 03/22/2025
SURGEON: Eleuterio Haley MD
PREOPERATIVE DIAGNOSIS: Anal pain
POSTOPERATIVE DIAGNOSIS: Anal ulcers
OPERATION: Exam under anesthesia, transperineal ultrasound, perianal block
ASSISTANTS:
1. None
ANESTHESIA: Sedation with local
ESTIMATED BLOOD LOSS: Minimal
FINDINGS:
1. Increased sphincter tone; 3 superficial ulcers seen in the AML, LLQ and RLQ, associated with erythema of the anal canal; no fissures, masses or proctitis
2. Incidental finding: partially prolapsing left lateral internal hemorrhoid
SPECIMENS:
1. None
DRAINS: None
COMPLICATIONS: Shortly after starting, patient became hypoxic after a few episodes of gagging. Hypoxia lasted less than 1 minute, but she became bradycardic to the 30s. She was given atropine and her heart rate improved to normal. Case was aborted.
INDICATIONS: The patient is a 74-year-old female who was seen by my partner, Dr. Akins, in the office for refractory anal pain. He was unable to complete a thorough anorectal exam, but noted that there was increased sphincter tone. Due to the
severity of the pain, she was sent to the ED for evaluation and exam under anesthesia. She is on CellCept for history of lupus. She stopped the CellCept due to an upcoming knee surgery next week, but her last dose was yesterday. The operation was
discussed with the patient in detail, including the risks, benefits and alternatives. Depending on the findings, if there is an anal fissure, I would plan to treat her with sphincterotomy. If there is an abscess or fistula, I would treat her with
incision and drainage or seton placement. If there is another concern noted, I may take a biopsies. Risks described included, but not limited to bleeding, infection, urinary retention, damage to nearby structures such as the anal sphincter, fecal
incontinence or incontinence to flatus, inability to identify cause of pain, recurrence and anesthetic risks. The patient understood and agreed to proceed. The consent was signed and placed in the chart.
PROCEDURE IN DETAIL: The patient was taken to the operating room. Sequential compression devices were placed bilaterally. The patient was placed on the operating table in prone position. Sedation was commenced without complication. Two seat belts
were secured around the legs and upper back. The buttocks were taped apart. The perineum was prepped and draped in the usual fashion. A time-out was performed verifying the correct patient, procedure, operative site, positioning, and special
equipment.
I used an ultrasound to scan the perineum for any possible abscesses. No abscesses were identified. Local anesthesia used was a mixture of 30 mL of 0.25% Marcaine with epinephrine, 30mL of 1% lidocaine plain and 0.6 mg of dexamethasone. 40 mL was
injected perianally. The anorectal exam was performed assessing all four quadrants of the anal canal using Hill-Ramirez retractors in progressively increasing size. There were circumferential anal tags. The internal sphincter tone was hypertonic.
There were no anal fissures noted. There were superficial ulcers noted in 3 different locations. There was an ulcer in the anterior midline, starting at the mid anal canal and extending up to the proximal anal canal, about 5 mm wide and 1.5 cm
long. There was a small ulcer noted in the right lateral position, mid-anal canal, about 3 x 3 mm. There was a partially�prolapsing internal hemorrhoid in the left lateral position. At the base of this internal hemorrhoid, there was a superficial
ulcer, about 1 cm in size. The anal canal was erythematous. Rectal mucosa was visualized and appeared healthy. There were no palpable masses and no fluctuance.
At this point in the operation, it was noted that the patient gagged a few times and spit up some fluid. She then became hypoxic to the 70s to 80s. Anesthesia attempted to bring her oxygen back, but after 20 to 30 seconds, her oxygenation did not
improve. We quickly removed the drapes and placed the patient back on the stretcher. Using [id number], her oxygenation returned to 100%. Her hypoxia was probably less than a total of 1 minute. However, it was then noted that her heart rate
was in the 30s. Dr. Hayes with anesthesia thought that the rhythm on the monitor looked like complete heart block. He administered atropine and the heart rate returned to normal. Throughout this episode, the patient had a palpable pulse and
was not hypotensive. After discussion with him, we both agreed to abort the procedure so that she could have an evaluation by cardiology.
All needle, sponge and instrument counts were correct. The patient was transferred to the recovery room in stable condition. The case was discussed with the hospitalist team and cardiology.
DICTATED BY: Eleuterio Haley MD
[2025-03-22] MEDS: ZOFRAN 4 MG IV (15:00)
[2025-03-22] MEDS: KCL 270 MEQ IV (15:04)
--- NOTE | 2025-03-22 15:04 | W.PN.UPDATE ---
Update Note
Progress Note Update
Was alerted at 2:30PM by Dr. Haley that patient had experienced hypoxia with complete heart block and bradycardia of heart rate in the 30s midway through her procedure in the OR. Atropine was given in the OR, increasing her heart rate to 100. The
case was subsequently cancelled and she was moved into the PACU, where I met her after consulting the Cardiology team. She was wearing an oxygen mask. She reported feeling nauseous with a headache, lightheadedness and a sore throat. These concerns
were not present at the time of my exam on her in the ED and are likely secondary to awaking from anesthesia. She denies jaw pain, chest pain, shortness of breath, feeling like her heart is racing/fluttering, abdominal pain.
On physical exam, heart was regular rate and rhythm, normal S1 and S2. Some wheezing noted on anterior lung exam on the right side. Vital signs were stable when I arrived and remained stable for the ~25 minutes I was at her bedside. EKG performed in
the PACU showed bundle branch block with no heart block. The Cardiology team arrived at the bedside and examined her as well. She will be transferred to telemetry upon leaving the PACU, orders in place. Prior orders placed for magnesium and
potassium repletion will completed now. Order for Chest X-ray has already been placed.
--- NOTE | 2025-03-22 15:06 | CON.CAR ---
Addendum entered and electronically signed by Kevin Camargo DO 03/22/25 15:44:
I saw and examined the patient.
The Morgue Attendant's note was reviewed and I agree with the note.
Comment:
Patient's pleasant 74-year-old female with CAD with prior stenting and CABG 2021 hypertension, hyperlipidemia, chronic left bundle branch block and SLE who presented with rectal pain and hematochezia. During procedure today with anesthesia, in
discussion with anesthesiologist, while patient was prone, she had dry heaving with nausea when she was then flipped supine, she had some desaturation and with subsequent suction, was noted to have a heart rate in 30s with possible heart block.
Rhythm strips from this episode are not available for review. Patient was provided atropine with resolution and return to sinus rhythm with one-to-one conduction. Patient evaluated in PACU noted to be sinus rhythm with one-to-one conduction. EKG
sinus rhythm one-to-one conduction with left bundle branch block. Patient reporting no chest pain, shortness of breath, palpitations, lightheadedness, dizziness, or weakness. Patient reporting nausea.
GENERAL: no acute distress
EYE: sclera anicteric
NECK: Supple, no JVD, no carotid bruit appreciated
ENT: normal nose, moist mucosal membranes
CARDIAC: Regular rate and rhythm, +S1/S2, no murmur, rubs, or gallops
CHEST/PULMONARY: Normal effort, clear breath sounds
ABDOMEN: Soft, without focal tenderness or distention
NEUROLOGICAL: Alert and oriented x3
SKIN: Warm and dry, no rash
PSYCH: Normal and appropriate interaction.
PACU telemetry shows sinus rhythm one-to-one conduction
A/P as below
Likely bradycardia related to augmented parasympathetic response (vagal tone) related to anesthesia, rectal manipulation, and oral suction. Additionally, patient noted to have significant electrolyte abnormality and continued nausea.
Replete electrolytes goal potassium greater than 4, magnesium greater than 2
Treat underlying medical conditions including nausea possible chronic constipation and concern for bleeding
Monitor on telemetry. No indication at this time for permanent pacemaker
Original Note:
Consultation
Consultation Request
Date/Time Consultation Performed: 03/22/25
Requesting Provider: Dr. Haley
Performing Provider: Julianna Conti PA-C for Dr. Camargo
Reason for Consultation: CHB
Medical History
-
Chief Complaint: rectal pain
History of Present Illness:
Patient is a 74 yo F with PMH of CAD status post left circumflex and RCA PCI in 2014 then status post CABG x 3 in 2021, hypertension, hyperlipidemia, chronic left bundle branch block, SLE who has been having several weeks of sustained rectal pain
worsened with bowel movements and bright red blood per rectum. She had knee surgery in 11/2024 and since has had issues with constipation. She was seen today by Dr. Akins in the office and due to significant pain and concern for anal fissure was
directed to ER for further evaluation. She was brought to the OR for exam under sedation. Patient was placed in prone position and subsequently vomited with associated O2 desaturation. With concern for aspiration, she was then flipped back over
and suctioned. At this time was noted to have complete heart block, however strips are not available for our review. She was given dose of atropine with improvement to sinus bradycardia. Procedure was aborted. She has remained in sinus rhythm
with left bundle branch block since that time. She remains with nausea. She has never had issues before with her heart rhythm to her knowledge. She denies episodes of nausea or syncope in outpatient setting. Cardiology consulted for evaluation
PMH:
CAD status post LCx and RCA PCI in 2014, status post CABG x 3 in 2021
Hypertension
Hyperlipidemia
Chronic left bundle branch block
SLE
Past Medical History
Past Medical History: Other (in HPI)
Social History
Tobacco: Non-Smoker
Personal:
Living: With Family
Employment: Employed
Family History
Family History: CAD and Hypertension
Allergies / Home Medications
Allergy/AdvReac Type Severity Reaction Status Date / Time
No Known Allergies Allergy Verified 03/22/25 11:50
�Medication �Instructions �Recorded �Confirmed �Type
hydroxychloroquine 200 mg tablet 200 mg PO HS Autoimmune disorder 07/07/14 03/22/25 History
atorvastatin 80 mg tablet 80 mg PO HS 11/20/24 03/22/25 History
calcium 315 mg (as 1 tab PO HS 11/20/24 03/22/25 History
citrate)-vitamin D3 5 mcg (200
unit) tablet (Calcium Citrate + D)
cholecalciferol (vitamin D3) 25 25 mcg PO HS 11/20/24 03/22/25 History
mcg (1,000 unit) capsule (Vitamin
D3)
metoprolol succinate 25 mg 25 mg PO DAILY 11/20/24 03/22/25 History
tablet,extended release 24 hr
multivitamin 1 tab PO HS 11/20/24 03/22/25 History
valsartan 160 mg tablet 160 mg PO BID #1 tab 12/10/24 03/22/25 Rx
acetaminophen 500 mg tablet 1,000 mg PO DAILY PRN pain 03/18/25 03/22/25 History
(Acetaminophen Extra Strength)
aspirin 81 mg tablet 81 mg PO HS 03/18/25 03/22/25 History
chlorthalidone 25 mg tablet 25 mg PO DAILY 03/18/25 03/22/25 History
spironolactone 25 mg tablet 12.5 mg PO DAILY 03/18/25 03/22/25 History
oxycodone 5 mg tablet 5 - 10 mg (1 - 2 x 5 mg) PO Q6H 03/19/25 03/22/25 Rx
PRN moderate-severe pain #30 tabs
mycophenolate mofetil 500 mg tablet 1,000 mg PO DAILY 03/22/25 03/22/25 History
mycophenolate mofetil 500 mg tablet 500 mg PO HS 03/22/25 03/22/25 History
Review of Systems
-
History Source: Patient
All other systems: Negative unless noted
Physical Exam
Vital Signs
Temp Pulse Resp BP Pulse Ox
97.6 F 87 14 114/46 100
03/22/25 12:12 03/22/25 14:45 03/22/25 14:45 03/22/25 13:00 03/22/25 14:45
Lab Results
03/22/25 12:09
03/22/25 12:09
Physical Exam
General: Other (nauseous. on NRB)
HEENT: Normocephalic, Anicteric and Moist Mucous Membranes
Respiratory: Wheezes and Non Labored Respirations
Cardiac: S1/S2 and Regular Rhythm
GI: Soft, Non Tender, Non Distended and Normal Bowel Sounds
Musculoskeletal: No Clubbing, No Cyanosis and No Edema
Skin: Warm and Dry
Neuro: AO x 3
Impression / Plan
-
Primary Delimber Operator: Dr. Houser
Assessment:
Presentation with rectal pain, BRBPR, concern for anal fissure
Reported transient CHB during exam under sedation in OR, improved with atropine x1, suspected vagal
Concern for aspiration due to N/V
CAD status post LCx and RCA PCI in 2014, status post CABG x 3 in 2021
Hypertension
Hyperlipidemia
Chronic left bundle branch block
SLE
ECHO 06/03/23: EF 55 to 60%, mild concentric LVH, mild MR, mild TR
Lexiscan nuclear stress test 05/19/2023: EF 64%, small mild reversible defect in apical inferolateral and apical inferior segments consistent with ischemia
Plan:
- Patient presented from colorectal office to ER due to rectal pain and bright red blood per rectum with concern for anal fissure. Was in OR undergoing attempted exam during sedation, however while in prone position began to vomit and become
hypoxic with concern for aspiration. Patient was then flipped back over, suctioned, and noted to have episode of complete heart block. She was given atropine x 1 with improvement. Procedure aborted and patient seen in PACU.
- Suspected vagal event due to anal manipulation, prone positioning, sedation, nausea vomiting followed by suctioning
- Improvement in rhythm status post atropine suggests not high-grade AV block
- In sinus rhythm with left bundle branch block on review of EKG and telemetry in PACU
- Would hold Toprol overnight and can evaluate telemetry prior to resuming
- Check labs. Patient being given potassium and magnesium repletion
- No complaints of chest pain. Last echo and stress test from 2022 reviewed as above
- no present indication for PPM
- d/w nursing, anesthesia, resident
Data Reviewed
-
EKG: Tracing Personally Visualized and interpreted
Medical Tests (Nuc Med, Echo etc): Report Reviewed by me
Labs: Labs Reviewed by me
Old Records: Reviewed
[2025-03-22 15:10] LABS: Ferritin 66.3 ng/ml (11.1-264.0)
[2025-03-22 15:24] LABS: Vitamin B12 420 pg/ml (239-931)
[2025-03-22] MEDS: MAGNESIUM SULFATE 50 IV (15:33)
[2025-03-22 16:00] LABS: Troponin I 0.040 ng/ml
[2025-03-22] MEDS: SUBLIMAZE 25 MCG IV (17:15)
--- NOTE | 2025-03-22 17:54 | PTCARENOTE ---
Patient admitted from pacu post rectal surgery for possible fissure which was aborted.The patient vomited and went into complete heart block so the surgery was aborted.The patient is alert.She rates her pain at a 5 out of 10.She received Fentanyl
right before she came up to her room.The patient is in her bed with the call simmons in reach.
[2025-03-22] MEDS: DILAUDID 0.5 MG IV (19:47)
[2025-03-22] MEDS: TYLENOL 1000 MG PO (19:47)
[2025-03-22] MEDS: LIPITOR 80 MG PO (21:04)
[2025-03-22] MEDS: PLAQUENIL 200 MG PO (21:04)
[2025-03-22] MEDS: ASPIR LOW (ENTERIC COATED) 81 MG PO (21:04)
[2025-03-22 23:08] LABS: Troponin I 0.056 ng/ml
[2025-03-23] MEDS: TYLENOL 1000 MG PO ×3 (00:06→12:03)
[2025-03-23 03:04] VITALS: BP 122/49
[2025-03-23 05:23] LABS: Blood Urea Nitrogen 21 mg/dl (7-17); Calcium 9.1 mg/dl (8.4-10.2); Carbon Dioxide 24 mmol/L (22-30); Chloride 107 mmol/L (98-107); Estimated Creatinine Clearance 56 ml/min; Glucose 119 mg/dl (70-99); Magnesium 2.0 mg/dl (1.6-2.3); Potassium 4.3 mmol/L (3.5-5.1); Sodium 137 mmol/L (135-145); eGFR > 60.00
[2025-03-23] MEDS: ANESTHETIC LOZENGE 1 LOZENGE PO (05:47)
[2025-03-23 05:51] LABS: Troponin I 0.041 ng/ml
[2025-03-23 07:05] LABS: Hematocrit 25.7 % (37.0-47.0); Hemoglobin 8.5 g/dL (12.0-16.0); Mean Corp Hgb Conc. 33.1 g/dL (33.0-37.0); Mean Corpuscular Volume 92.4 fL (81.0-99.0); Platelet Count 246 10^3/uL (130-400); Red Cell Dist. Width 13.0 % (11.5-14.5)
[2025-03-23 07:20] VITALS: BP 123/54
--- NOTE | 2025-03-23 07:25 | W.PN.HOSP.TC ---
Today's Communication/Plan
-
Sitz Baths
Preparation H
Possible discharge today
Assessment / Plan
Assessment / Plan
IMPRESSION:
This is a 74 y/o female with pmhx of Lupus, Essential Hypertension, Coronary Artery Disease s/p stent placement in 2014 and history of AK who reports she has had severe burning pain and throbbing in her rectum for 3 weeks and bleeding possibly
secondary to anal fissure.
PLAN:
Anorectal Spasm/Pain due to Ulcerations
External Hemorrhoids
Anemia, likely Blood Loss
Episode of Complete Heart Block
-Patient with 3 weeks of burning/throbbing anorectal pain with bright red blood per rectum that appeared out of proportion to visual rectal exam. Digital Exam deferred due to pain. Hemoglobin in the ED 9.9
-Patient was taken to the OR yesterday. While in the OR under anesthesia, she began to vomit and became hypoxic with bradycardia. Telemetry showed what appeared to be complete heart block. She was given atropine x1 which resolved her complete heart
block, and the case was aborted prematurely. Cardiology was consulted at that time. She was then transferred from the PACU to telemetry
-No indication for antibiotics at this time
-Initially patient's pain was well controlled this AM, but within a few hours became uncontrolled
-Ordered Sitz Baths, preparation H
-Encouraged use of stool softeners to avoid constipation, as this will almost certainly increase her pain
-Encouraged avoiding holding in bowel movements as much as possible to also avoid constipation
-Continue to monitor CBC
-Will monitor
Systemic Lupus Erythematosus
-HOLD Mycophenolate mofetil. Last dose 03/21/2025. Would recommend continuing to hold upon discharge with outpatient rheumatology follow up
-Continue Hydroxychloroquine 200mg PO HS
-Will monitor
Essential Hypertension
-Home blood pressure medications have now been resumed
-Will monitor
Hypokalemia - Resolved
Hypomagnesemia - Resolved
-Magnesium (1.4) and Potassium (3.2) low on admission
-Ordered one time repletion
-Both electrolytes now within normal limits
Coronary Artery Disease S/p Stent x4
History of CABG
History of AK
-Ordered presurgical EKG today
-Alerted her jr. systems administrator to the this admission for continuity of care
-Will monitor
S/p Left Knee Replacement
Right Knee Osteoarthritis
-Patient with left knee replacement in 11/2024, plan for right knee replacement on 04/01/2025.
-Right knee replacement may need to be postponed especially based upon OR complications.
Anticipated Discharge: Within 24 hours
Subjective/Interval History
-
Date of Service: March 23, 2025
Patient was resting in bed with her at bedside. She states that she is free of nausea, lightheadedness or headaches that had presented yesterday following her visit to the OR. She is still with a sore throat, and had some relief with
Benzocaine lozenges. She reports she feels like she has to go to the bathroom, but is worried to do so because she fears she will begin to experience rectal pain again. At my initial visit around 8AM, she was free of rectal pain. She also has not
passed gas since yesterday.
Later the morning around 11AM, however, her rectal pain had returned. At that time she still had not had a bowel movement.
Objective Data
-
Labs:
Laboratory Results
03/23/25 03/23/25
04:24 06:42
WBC Cancelled 10.7
Hgb Cancelled 8.5 L
Hct Cancelled 25.7 L
Plt Count Cancelled 246
Sodium 137
Potassium 4.3 D
Chloride 107
Carbon Dioxide 24
BUN 21 H
Creatinine 0.8
Glucose 119 H
Calcium 9.1
Vital Signs:
Vital Signs
Temp Pulse Resp BP Pulse Ox
98.3 F 51 16 122/49 97
03/23/25 03:04 03/23/25 03:04 03/23/25 03:04 03/23/25 03:04 03/23/25 03:04
I&O
03/22/25 03/23/25 03/24/25
06:59 06:59 06:59
Intake Total 555 / 555
Balance 555 / 555
Review of Systems
-
History Source: Patient
Constitutional: Denies Fever or Chills
EENT: Reports Sore Throat
Respiratory: Denies Cough or Trouble Breathing
Cardiac: Denies Chest Pain or Palpitations
Abdomen/GI: Reports Bloody Stools (No recent BM since admission) and Other (Rectal pain); Denies Abdominal Pain, Nausea, Vomiting, Diarrhea, Constipated or Bloated
Neuro: Denies Dizzy or Weakness
Physical Exam
-
General: Well Developed, Well Nourished, No Apparent Distress and Comfortable (Initially, later clearly in pain)
HEENT: Normocephalic and Atraumatic
Respiratory: Clear to Auscultation (Left side only) and Wheezes (End expiratory wheezes throughout right lung sinclair)
Cardiac: Regular Rhythm and S1/S2
GI: Soft and Nontender
Rectal: Deferred by Provider
Skin: Warm and Dry
Neuro: Awake, Alert and Oriented
Psych: Calm
[2025-03-23] MEDS: TOPROL XL 25 MG PO (09:01)
[2025-03-23 11:05] VITALS: BP 142/95
--- NOTE | 2025-03-23 11:32 | W.PN.CARDCBS ---
Addendum entered and electronically signed by Kevin Camargo DO 03/23/25 12:37:
I saw and examined the patient.
The Mailhouse Operator's note was reviewed and I agree with the note.
Comment:
Patient resting in bed reporting rectal pain. No chest pain, shortness of breath, palpitations, syncope
Telemetry shows sinus rhythm with one-to-one conduction. Occasional PAC/PVC. No pauses
A/P as below
Monitor on telemetry while admitted
Okay to resume beta-esme
Outpatient echocardiogram
Will sign off, please call with questions
Original Note:
Today's Communication / Plan
-
Resume outpatient Toprol
Follow on telemetry while admitted
Will plan for repeat echocardiogram as outpatient prior to 04/01 if plans to proceed with knee replacement as scheduled
Impression / Plan
-
Primary Telephone Recorder: Dr. Houser
Assessment:
Presentation with rectal pain, BRBPR, concern for anal fissure
Reported transient CHB during exam under sedation in OR, improved with atropine x1, suspected vagal
Concern for aspiration due to N/V
CAD status post LCx and RCA PCI in 2014, status post CABG x 3 in 2021
Hypertension
Hyperlipidemia
Chronic left bundle branch block
SLE
ECHO 06/03/23: EF 55 to 60%, mild concentric LVH, mild MR, mild TR
Lexiscan nuclear stress test 05/19/2023: EF 64%, small mild reversible defect in apical inferolateral and apical inferior segments consistent with ischemia
Plan:
- Patient presented from colorectal office to ER due to rectal pain and bright red blood per rectum with concern for anal fissure. Was in OR undergoing attempted exam during sedation, however while in prone position began to vomit and become
hypoxic with concern for aspiration. Patient was then flipped back over, suctioned, and noted to have episode of complete heart block. She was given atropine x 1 with improvement. Procedure aborted and patient seen in PACU.
- Suspected vagal event due to anal manipulation, prone positioning, sedation, nausea vomiting followed by suctioning
- Remains in sinus rhythm with chronic left bundle branch block and 1 brief run of atrial tachycardia on review of telemetry overnight. No evidence of pauses or high-grade AV block
- Will resume Toprol 25 mg daily
- K/mag stable
- Troponin relatively flat at 0.04, 0.05 range. Suspected nonischemic myocardial injury secondary to above. No chest pain
- Remains with significant pain. If plans to attempt for recurrent colorectal procedure, could consider alternative sedation, premedicating with antiemetic, or adjustments in positioning if able
- She is presently scheduled for knee replacement 04/01/2025, and was previously cleared by her primary alteration specialist. Will schedule for repeat echo prior, last from 2022 as above.
- Discussed with patient and at bedside. They state they may reschedule her knee surgery based on her current issues
Progress Note - Telephone Recorder
Subjective
Date of Service: March 23, 2025
Remains with significant rectal pain. No chest pain, lightheadedness or dizziness
Objective
Labs:
03/23/25 06:42
03/23/25 04:24
Labs
Hgb 8.5 g/dL (12.0-16.0) L 03/23/25 06:42
Hct 25.7 % (37.0-47.0) L 03/23/25 06:42
Plt Count 246 10^3/uL (130-400) 03/23/25 06:42
Sodium 137 mmol/L (135-145) 03/23/25 04:24
Potassium 4.3 mmol/L (3.5-5.1) D 03/23/25 04:24
BUN 21 mg/dl (7-17) H 03/23/25 04:24
Creatinine 0.8 mg/dL (0.6-1.0) 03/23/25 04:24
Glucose 119 mg/dl (70-99) H 03/23/25 04:24
Troponins
03/22/25 03/22/25 03/22/25
14:52 14:53 15:24
Troponin I Cancelled Cancelled 0.040 H*
03/22/25 03/23/25
22:22 04:24
Troponin I 0.056 H* D 0.041 H* D
Vital Signs and I&O:
Vital Signs
Temp Pulse Resp BP Pulse Ox
97.8 F 55 16 142/95 98
03/23/25 11:05 03/23/25 11:05 03/23/25 11:05 03/23/25 11:05 03/23/25 11:05
Vital Signs
Temp Pulse Resp BP Pulse Ox
97.8 F 55 16 142/95 98
03/23/25 11:05 03/23/25 11:05 03/23/25 11:05 03/23/25 11:05 03/23/25 11:05
Intake & Output
03/21/25 03/22/25 03/23/25 03/24/25
07:59 07:59 07:59 07:59
Intake Total 555 / 555
Balance 555 / 555
Physical Exam
Physical Exam
GEN: No distress, awake, alert, oriented x3
HEENT: supple, anicteric, mmm, EOMI
LUNGS: CTA bilaterally, no wheezes/rales
CV: Reg, S1/S2, no murmur
ABD: soft, BS+, NT/ND
EXT: No cyanosis, clubbing, edema
NEURO: Gross non-focal
SKIN: Warm, pink, dry. No rash
[2025-03-23] MEDS: NUPERCAINAL 1% OINTMENT 1 APPLIC TOPICAL (11:58)
--- NOTE | 2025-03-23 12:00 | W.PN.CRS1 ---
Today's Communication / Plan
-
Local care
Analgesics
Continue to hold Cellcept.
No plans for further anorectal surgery.
Dispo as per the primary team.
Assessment/Plan
-
POD #1 aborted rectal EUA due to possible aspiration.
Operative findings reviewed and I suspect the ulcerations are from Cellcept.
The Cellcept is currently being held for possible knee surgery 04/01, and her rectal pain should improve.
Will order Dibucaine ointment and advised to Sitz baths and Miralax (shraddha if taking narcotics).
I will have my office order topical Nifedipine.
I have advised her to follow-up with her merchandise executive for alternative treatment of her Lupus.
No plans for further surgery. Discharge as per the primary team.
Subjective Data
Subjective Data
Date of Service: March 23, 2025
Still with some rectal discomfort.
Objective Data
-
Vital Signs
Temp Pulse Resp BP Pulse Ox
97.8 F 55 16 142/95 98
03/23/25 11:05 03/23/25 11:05 03/23/25 11:05 03/23/25 11:05 03/23/25 11:05
Intake & Output
03/22/25 03/23/25 03/24/25
06:59 06:59 06:59
Intake Total 555 / 555
Balance 555 / 555
Intake:
IV fluids (Total) 555 / 555
K+ Rene 155 / 155
Mag Rene 200 / 200
Normosol 200 / 200
Other:
Number of approximated MODERATE 3
amounts of urine
Lab Results
03/23/25 06:42
03/23/25 04:24
Physical Exam
-
General: No Acute Distress
Abdomen: Soft, Non Distended and Non Tender
[2025-03-23] MEDS: ROXICODONE 5 MG PO ×2 (12:04→16:16)
[2025-03-23] MEDS: MIRALAX 17 GRAMS PO (12:04)
--- NOTE | 2025-03-23 14:59 | W.DCSUMMARY ---
Documented by User: Mary Killian DO, Resident 03/23/25 15:27
Discharge Summary
Discharge Data
Date of Admission: 03/22/25
Date of Discharge: 03/23/25
-
Pending Results: No
Hospital Course
Discharging Physician : Dr. Retana
Disposition : Good
Primary care physician : Dr. Vegas
Principal Discharge diagnosis : Anorectal Spasm/Pain due to Ulcerations, Hypokalemia/Hypomagnesemia, Transient Complete Heart Block likely due to anesthesia
Chronic Discharge diagnosis : External Hemorrhoids, Systemic Lupus Erythematosus, Essential Hypertension
Hospital Course :
This is a 74 y/o female with pmhx of Lupus on CellCept, Essential Hypertension, Coronary Artery Disease s/p stent placement in 2014 and history of AL who reports she has had severe burning pain and throbbing in her rectum for 3 weeks and bleeding
approximately 1/2 cup bright red blood with each bowel movement. In November 2024, she had a left knee replacement and was started on medications for pain control. She was also given a stool softener at that time, which she did not take. At that point
she had begun to experience some straining/constipation, so when she began to experience rectal pain it was assumed to be due to hemorrhoids. She tried using over the counter hemorrhoid cream, but her pain persisted as did the bleeding. She was
unable to tolerate suppositories recommended by her PCP. She saw her ColoRectal surgeon on 03/22, who recommended she report to the ED for an exam under sedation. Her last dose of CellCept had been on 03/21
In the ED her hemoglobin was 9.9, her potassium was 3.2, and her magnesium was 1.4. Potassium and Magnesium repletion were ordered. She was quickly taken to the OR and placed under sedation. Exam findings showed increased sphincter tone; 3
superficial ulcers seen in the AML, LLQ and RLQ, associated with erythema of the anal canal; no fissures, masses or proctitis. A partially prolapsing left lateral internal hemorrhoid was also noted. The exam was not able to proceed further after
this, as the patient abruptly began to vomit requiring suctioning. She became bradycardic with telemetry showing what appeared to be complete heart block with bradycardia in the 30s. She was given a single dose atropine with return to normal rate,
and the case was aborted. Cardiology was consulted. EKG in the PACU showed left bundle branch block without heart block. It was determined her transient heart block to most likely be vagal in origin, and she was monitored on telemetry overnight with
no further events of heart block.
Her symptoms improved overnight, but briefly returned in the morning of 03/23. Her potassium david to 4.3, and her magnesium to 2.0. A TSH was also checked which was low at 0.28, but her reflex T4 was normal at 1.23. She was given Oxycodone with
significant relief in pain. She was found to be medically stable and discharged to home with prescription for a per rectum hydrocortisone 2.5% cream to use daily as needed for rectal pain, as well as supplies to perform Sitz Baths at home. She was
instructed to take stool softeners to avoid further constipation.
She is to follow up with her PCP in less than one week. Cardiology has arranged for an outpatient Echocardiogram to be completed prior to her next scheduled knee replacement on 04/01/2025. She was also instructed to follow up with her production potter
in regards to her CellCept, as this was likely the cause of her ulcers.
Important imaging findings : N/a
Procedure findings : N/a
Discharge Plan
-
Patient Disposition: Home (Routine Discharge)
Discharge Diagnosis/Procedures: Anorectal Spasm/Pain due to Ulcerations
External Hemorrhoids
Transient Complete Heart Block likely due to anesthesia
Hypokalemia/Hypomagnesemia-resolved
Systemic Lupus Erythematosus
Essential Hypertension
Condition: Good
Diet: No restrictions and As tolerated
Activity: As tolerated
Driving Restrictions: As prior to admission
Bathing Restrictions: None
Blood Work: BMP in 1 week
Others Tests: Echocardiogram at 03/26/25@ 10:20AM- present to main lobby and check in through outpatient registration.
Referrals:
Dagmar Vegas MD [Family Provider, Family Practice] - in less than 1 week
Additional Discharge Medication Instructions: Thank you for visiting [facility]. You have been provided with supplies for Sitz Baths. When using a Sitz bath, be cautious that the water is not too hot to avoid soto. A temperature around
104F/40C is a good average. We recommend using a Sitz bath for 15-20 minutes at a time, being sure to pat yourself dry afterwards with a clean towel. Avoid rubbing the area with a towel, as this may aggravate your symptoms.
We are prescribing you a steroid cream to use on your rectal area. Use the included applicator to apply one dose to the affected area each day as needed for pain.
You already have a prescription for 5mg oxycodone at home. You may take one tablet every 4 hours as needed for pain.
Limit use of narcotic if possible to prevent constipation in setting of possible anal fissures with anal pain.
You should continue to take Miralax 17 grams daily. If this is not enough to ensure you are having one bowel movement each day, you may add Docusate with Senna, 1 tablet by mouth twice a day as needed.
Consider to stop CellCept. Speak with your production potter about alternative therapies to CellCept, as this was the most likely cause of your rectal ulcerations.
Prescriptions:
New
hydrocortisone 2.5 % cream with perineal applicator
1 applic NC DAILY PRN (Reason: Pain) Qty: 30 0RF
Continued
hydroxychloroquine 200 MG tablet
200 mg PO HS
acetaminophen [Acetaminophen Extra Strength] 500 mg tablet
1,000 mg PO DAILY PRN (Reason: pain)
Rx Instructions:
DO NOT exceed >4000 mg daily.
oxycodone 5 mg tablet
5 - 10 mg PO Q6H PRN (Reason: moderate-severe pain) Qty: 30 0RF
Rx Instructions:
1 tab for moderate pain, 2 if severe.
Dx total joint.
mycophenolate mofetil 500 mg tablet
1,000 mg PO DAILY
mycophenolate mofetil 500 mg tablet
500 mg PO HS
multivitamin Tablet
1 tab PO HS Qty: 0 0RF
atorvastatin 80 MG tablet
80 mg PO HS Qty: 0 0RF
chlorthalidone 25 mg tablet
25 mg PO DAILY Qty: 0 0RF
Rx Instructions:
HOLD IF systolic blood pressure <130 while on post-surgical narcotics.
spironolactone 25 mg tablet
12.5 mg PO DAILY Qty: 0 0RF
Rx Instructions:
HOLD IF systolic blood pressure <130 while on post-surgical narcotics.
aspirin 81 mg Tablet
81 mg PO HS Qty: 0 0RF
metoprolol succinate 25 mg Tablet Extended Release 24 Hr
25 mg PO DAILY Qty: 0 0RF
valsartan 160 mg Tablet
160 mg PO BID Qty: 1 0RF
Rx Instructions:
HOLD IF systolic blood pressure <130 while on post-surgical narcotics.
cholecalciferol (vitamin D3) [Vitamin D3] 25 mcg (1,000 unit) Capsule
25 mcg PO HS Qty: 0 0RF
calcium citrate-vitamin D3 [Calcium Citrate + D] 315 mg-5 mcg (200 unit) Tablet
1 tab PO HS Qty: 0 0RF
Discharge Orders:
Discharge Patient (As Directed); Ordered 03/23/25
Ordered By: Mary Killian
Discharge Date and Time
Print Language: SERBIAN

Documented by User: Jasmin Retana MD 03/23/25 15:36
Discharge Summary
Discharge Data
Date of Admission: 03/22/25
Date of Discharge: 03/23/25
Hospital Course
Discharging Physician : Dr. Retana
Disposition : Good
Primary care physician : Dr. Vegas
Principal Discharge diagnosis : Anorectal Spasm/Pain due to Ulcerations, Hypokalemia/Hypomagnesemia (resolved), Transient Complete Heart Block likely due to anesthesia
Chronic Discharge diagnosis : External Hemorrhoids, Systemic Lupus Erythematosus, Essential Hypertension
Hospital Course :
This is a 74 y/o female with pmhx of Lupus on CellCept, Essential Hypertension, Coronary Artery Disease s/p stent placement in 2014 and history of AL who presented with severe rectal pain for about 3 weeks. This was associated with bleeding (bright
red blood) with each bowel movement.
In November 2024, she had a left knee replacement and was started on medications for pain control. She was also given a stool softener at that time, which she did not take. At that point she had begun to experience some straining/constipation, so when
she began to experience rectal pain which was assumed to be due to hemorrhoids. She tried using over the counter hemorrhoid cream, but her pain persisted as did the bleeding. She was unable to tolerate suppositories recommended by her PCP. She saw
her ColoRectal surgeon on 03/22, who recommended an exam under sedation.
She was taken to the OR and placed under sedation. Exam findings showed increased sphincter tone; 3 superficial ulcers seen in the AML, LLQ and RLQ, associated with erythema of the anal canal; no fissures, masses or proctitis. A partially prolapsing
left lateral internal hemorrhoid was also noted. The exam was not able to proceed further after this as the patient abruptly began to vomit requiring suctioning. She became bradycardic with telemetry showing what appeared to be complete heart block
with bradycardia in the 30s. She was given a single dose atropine with return to normal rate, and the case was aborted. Cardiology was consulted. Follow up EKG in the PACU showed left bundle branch block without heart block. It was determined her
transient heart block was most likely vagal in origin, and she was monitored on telemetry overnight with no further tele event.
She was given Oxycodone with significantly helped with pain. She has been informed to limit the use of narcotic in setting of constipation and anal fissure. She can continue with sitz bath and hydrocortisone cream for empiric hemorrhoid treatment.
She has been informed to continue to take MiraLAX with or without a stool softener to prevent constipation.
She can also follow-up with her production potter outpatient to discuss the need to continue CellCept, as it is felt that this medication may have precipitated the anal ulcers.
Important imaging findings : N/a
Procedure findings : N/a
Discharge Plan
-
Patient Disposition: Home (Routine Discharge)
Discharge Diagnosis/Procedures: Anorectal Spasm/Pain due to Ulcerations
External Hemorrhoids
Transient Complete Heart Block likely due to anesthesia
Hypokalemia/Hypomagnesemia-resolved
Systemic Lupus Erythematosus
Essential Hypertension
Condition: Good
Diet: No restrictions and As tolerated
Activity: As tolerated
Driving Restrictions: As prior to admission
Bathing Restrictions: None
Blood Work: BMP in 1 week
Others Tests: Echocardiogram at 03/26/25@ 10:20AM- present to main lobby and check in through outpatient registration.
Referrals:
Dagmar Vegas MD [Family Provider, [facility]] - in less than 1 week
Additional Discharge Medication Instructions: Thank you for visiting [facility]. You have been provided with supplies for Sitz Baths. When using a Sitz bath, be cautious that the water is not too hot to avoid soto. A temperature around
104F/40C is a good average. We recommend using a Sitz bath for 15-20 minutes at a time, being sure to pat yourself dry afterwards with a clean towel. Avoid rubbing the area with a towel, as this may aggravate your symptoms.
We are prescribing you a steroid cream to use on your rectal area. Use the included applicator to apply one dose to the affected area each day as needed for pain.
You already have a prescription for 5mg oxycodone at home. You may take one tablet every 4 hours as needed for pain.
Limit use of narcotic if possible to prevent constipation in setting of possible anal fissures with anal pain.
You should continue to take Miralax 17 grams daily. If this is not enough to ensure you are having one bowel movement each day, you may add Docusate with Senna, 1 tablet by mouth twice a day as needed.
Consider to stop CellCept. Speak with your production potter about alternative therapies to CellCept, as this was the most likely cause of your rectal ulcerations.
Prescriptions:
New
hydrocortisone 2.5 % cream with perineal applicator
1 applic NC DAILY PRN (Reason: Pain) Qty: 30 0RF
Continued
hydroxychloroquine 200 MG tablet
200 mg PO HS
acetaminophen [Acetaminophen Extra Strength] 500 mg tablet
1,000 mg PO DAILY PRN (Reason: pain)
Rx Instructions:
DO NOT exceed >4000 mg daily.
oxycodone 5 mg tablet
5 - 10 mg PO Q6H PRN (Reason: moderate-severe pain) Qty: 30 0RF
Rx Instructions:
1 tab for moderate pain, 2 if severe.
Dx total joint.
mycophenolate mofetil 500 mg tablet
1,000 mg PO DAILY
mycophenolate mofetil 500 mg tablet
500 mg PO HS
multivitamin Tablet
1 tab PO HS Qty: 0 0RF
atorvastatin 80 MG tablet
80 mg PO HS Qty: 0 0RF
chlorthalidone 25 mg tablet
25 mg PO DAILY Qty: 0 0RF
Rx Instructions:
HOLD IF systolic blood pressure <130 while on post-surgical narcotics.
spironolactone 25 mg tablet
12.5 mg PO DAILY Qty: 0 0RF
Rx Instructions:
HOLD IF systolic blood pressure <130 while on post-surgical narcotics.
aspirin 81 mg Tablet
81 mg PO HS Qty: 0 0RF
metoprolol succinate 25 mg Tablet Extended Release 24 Hr
25 mg PO DAILY Qty: 0 0RF
valsartan 160 mg Tablet
160 mg PO BID Qty: 1 0RF
Rx Instructions:
HOLD IF systolic blood pressure <130 while on post-surgical narcotics.
cholecalciferol (vitamin D3) [Vitamin D3] 25 mcg (1,000 unit) Capsule
25 mcg PO HS Qty: 0 0RF
calcium citrate-vitamin D3 [Calcium Citrate + D] 315 mg-5 mcg (200 unit) Tablet
1 tab PO HS Qty: 0 0RF
Discharge Orders:
Discharge Patient (As Directed); Ordered 03/23/25
Ordered By: Mary Killian
Discharge Date and Time
Print Language: SERBIAN
--- NOTE | 2025-03-23 15:14 | W.PN.UPDATE ---
Addendum entered and electronically signed by Jasmin Retana MD 03/23/25 15:37:
total DC time 40 min
Original Note:
Update Note
Progress Note Update
I saw and evaluated the patient with the residents.
HPI: 74-year-old female was seen in colorectal surgery's office and was sent to ER. Patient had knee surgery in November and has been some constipation issues since then. She has had some rectal pain in the past 3 weeks which was getting worse and also
had some blood in the stools.
A/P:
# Anal pain with possible anal fissure
# History of constipation and hemorrhoids in the past
unfortunately, pt did not tolerate anoscopy under anesthesia due to development of temporary heart block
No need for PPM per Card
Cont Miralax to prevent constipation
Informed to limit use of narcotic to prevent constipation
Can continue Sitz bath and steroid cream for empiric hemorrhoid treatment
No further procedure planned per CRS, cleared for DC per CRS
Informed pt to follow up with rheum to discuss CellCept alternative as it is felt CellCept may be the cause of anal fissure leading to severe anal pain
Discussed with at bedside
[2025-03-23 15:15] VITALS: BP 126/45
[2025-03-26 04:30] LABS: HSV 1/2 Combined Screen, IgG >22.40 IV (<=0.89)
== END 2025-03-23 16:34 | disposition home or self-care (01) ==
LOC: SDS 13:46
PROVIDERS: Hospitalist; Student in an Organized Health Care Education/Training Program; Surgery; ATTENDING PHYSICIAN Internal Medicine; CONSULT PHYSICIAN Internal Medicine Cardiovascular Disease; EMERGENCY PHYSICIAN Emergency Medicine; FAMILY PHYSICIAN Family Medicine
DX: K62.6 Ulcer of anus and rectum (principal); K62.89 Other specified diseases of anus and rectum; K64.8 Other hemorrhoids; J95.88 Other intraoperative complications of respiratory system, not elsewhere classified; I97.88 Other intraoperative complications of the circulatory system, not elsewhere classified; Z53.8 Procedure and treatment not carried out for other reasons
CPT/HCPCS: 45990; 71045; 80048; 80053; 82607; 82728; 83540; 83550; 83735; 84439; 84443; 84484; 85025; 85027; 86694; 93005; 99284; J0585

== ENCOUNTER → 2025-04-17 15:35 | Outpatient (REF) | payer BC, SELFPAY | LOC: RCS 15:35 | PROVIDERS: ATTENDING PHYSICIAN Internal Medicine Cardiovascular Disease; FAMILY PHYSICIAN Family Medicine | DX: I44.2 Atrioventricular block, complete (principal); I44.7 Left bundle-branch block, unspecified; I25.10 Atherosclerotic heart disease of native coronary artery without angina pectoris | CPT/HCPCS: 93306 ==

== ENCOUNTER 2025-04-26 05:58 | Day surgery (SDC) | payer BC, SELFPAY ==
[2025-04-26] VITALS (8 sets, daily range): BP systolic 109–152; BP diastolic 44–69; BMI 28.4
[2025-04-26] MEDS: TYLENOL 1000 MG PO (07:02)
[2025-04-26] MEDS: NORMOSOL-R/PLASMALYTE-A 1000 IV (07:03)
--- NOTE | 2025-04-26 08:29 | W.IMMPOSTOP ---
Addendum entered and electronically signed by Eleuterio Haley MD 04/26/25 08:46:
updated spouse over the phone
Original Note:
Surgical Immed Post Op Note
-
Primary Surgeon: Eleuterio Haley MD
Assisting Surgeon: None
Pre-op Diagnosis: Anal ulcers
Post-op Diagnosis: Anal ulcers
Procedure Performed: EUA, anal biopsy, bilateral pudendal nerve block
Anesthesia Type: Sedation with local
Specimen / Cultures: 1. Right lateral anal ulcer biopsy 2. Left lateral anal ulcer biopsy
Estimated Blood Loss: 5 mL
Complications: None
Operative Findings: Nearly-healed anal ulcers in the right lateral, left lateral and posterior midline; performed biopsies of the right lateral and left lateral anal ulcers, each about 4 to 5 mm wide and 1.5 cm long; incidental�moderate size left
lateral internal hemorrhoid without irritation with partial prolapse, moderate-sized right posterior internal hemorrhoid without irritation, small internal hemorrhoid in the anterior midline without irritation; 4-5 cm rectocele, redundant rectal
mucosa
--- NOTE | 2025-04-26 08:32 | OR.RPT ---
Operative Report
Operative Report
DATE OF OPERATION: 04/26/2025
SURGEON: Eleuterio Haley MD
PREOPERATIVE DIAGNOSIS: Anal ulcers, anal pain
POSTOPERATIVE DIAGNOSIS: Anal ulcers, anal pain
OPERATION: Exam under anesthesia, biopsy of anal ulcers, bilateral pudendal nerve block
ASSISTANTS:
1. None
ANESTHESIA: Sedation with local
ESTIMATED BLOOD LOSS: 5 mL
FINDINGS:
1. Nearly-healed anal ulcers in the left lateral and right lateral position of mid-anal canal, about 1.5 cm in length and 5 mm wide; performed biopsies
2. Healed anal ulcer in the posterior midline
3. Incidental findings: moderate-sized LLQ internal hemorrhoid with partial prolapse without irritation, moderate-sized RPQ internal hemorrhoid without irritation; small AML internal hemorrhoid without irritation, 4-5 cm rectocele
SPECIMENS:
1. Right lateral anal ulcer biopsy
2. Left lateral anal ulcer biopsy
DRAINS: None
COMPLICATIONS: None
INDICATIONS: The patient is a 74-year-old female with PMH of lupus (had been on CellCept, now off) who initially presented with significant anal pain and was unable to tolerate an anorectal exam. She was taken to the OR on 03/22/25 for exam under
anesthesia. At that point, she had held her CellCept for a day or so for an upcoming orthopedic surgery. She was found to have 3 anal ulcers within the anal canal, but due to complications with anesthesia, biopsies were unable to be obtained. She
was treated empirically for herpes reactivation as her HSV antibody was elevated. She did not restart the CellCept. The pain improved somewhat, but not completely and she continued having anal bleeding. Therefore, the patient was recommended to
have surgery for biopsies of the ulcers. The operation was discussed with the patient in detail, including the risks, benefits and alternatives. Risks described included, but not limited to bleeding, infection, urinary retention, damage to nearby
structures such as the anal sphincter, fecal incontinence, recurrence, inadequate sample, inability to obtain diagnosis and anesthetic risks. The patient understood and agreed to proceed. The consent was signed and placed in the chart.
PROCEDURE IN DETAIL: The patient was taken to the operating room. Sequential compression devices were placed bilaterally. The patient was placed on the operating table in supine position. Sedation was commenced without complication. The patient
was placed in lithotomy position with arms secured to the arm boards and pressure points padded. The buttocks were taped apart. The perineum was prepped and draped in the usual fashion. A time-out was performed verifying the correct patient,
procedure, operative site, positioning, and special equipment.
Local anesthesia used was a mixture of 30 mL of 0.25% Marcaine with epinephrine, 30mL of 1% lidocaine plain and 0.6 mg of dexamethasone. 40 mL was injected perianally at the beginning of the case. The anorectal exam was performed assessing all four
quadrants of the anal canal using Hill-Ramirez retractors in progressively increasing size. There were anal ulcers located in the left lateral and right lateral mid-anal canal. These had nearly healed. They measured about 1.5 cm in length and 5
mm wide each. There was a flattening of the anal mucosa in the posterior midline, consistent with a healed ulcer or fissure. This extended the majority of the length of the anal canal. These ulcers were not hyperemic and were not bleeding. The
rectal mucosa appeared healthy without proctitis. There were no palpable masses. The rectal mucosa was noted to be redundant. On digital rectal exam, there was a 4 to 5 cm rectocele with bulging of the posterior vagina. There were moderate-sized
internal hemorrhoids in the left lateral and right posterior quadrants. There was partial prolapse noted on the left lateral internal hemorrhoid withdrawal of the anoscope. Neither had evidence of irritation or bleeding. There was an additional
internal hemorrhoid in the anterior midline that was small in size without irritation.
I performed biopsies of the right lateral and left lateral anal ulcers. Using Metzenbaum scissors, I grasped the edge of the ulcer and excised a small portion that included a portion of the base of the ulcer, taking care to avoid injury to the
underlying hemorrhoid. Hemostasis was achieved with electrocautery and pressure.
The remaining 20 mL of local were injected. 5 mL was injected bilaterally for a pudendal nerve block. 10 mL was injected around the surgical site and perianally. Hemostasis was reassessed once more using the small Hill-Ramirez and was confirmed.
Surgicel was placed in the operative site prophylactically.
At this point, the procedure was complete. All needle, sponge and instrument counts were correct. The patient tolerated the procedure well and was transferred to the recovery room in stable condition with gauze dressing in place secured with silk
tape.
DICTATED BY: Eleuterio Haley MD
== END 2025-04-26 09:55 | disposition home or self-care (01) ==
LOC: SDS 05:58
PROVIDERS: ATTENDING PHYSICIAN Surgery
DX: K62.89 Other specified diseases of anus and rectum (principal)
CPT/HCPCS: 45990; 88305; 88342